=== PATIENT | female | born 1975 ===

== ENCOUNTER 2018-10-20 05:14 | Inpatient (IN) | payer OTHER ==
[2018-10-20] VITALS (14 sets, daily range): BP systolic 88–110; BP diastolic 44–95
[~2018-10-20] VITALS: Ht 162.6 cm; Wt 56.7 kg
[~2018-10-20 05:14] MED LIST: CYCLOBENZAPRINE10 MG ORAL; LEXAPRO20 MG ORAL; LORAZEPAM0.5 MG ORAL; MELOXICAM7.5 MG/5 M ORAL; SEROQUEL50 MG ORAL
[2018-10-20 05:53] LABS: APPEARANCE,URINE CLEAR; BILIRUBIN, URINE NEGATIVE (NEGATIVE); COLOR,URINE PALE YELLOW; GLUCOSE, URINE (UA) NEGATIVE (NEGATIVE); KETONES,URINE NEGATIVE (NEGATIVE); LEUKOCYTE ESTERASE ,URINE 1+ (NEGATIVE); NITRITE,URINE NEGATIVE (NEGATIVE); PH,URINE 5 (4.5-8.0); PROTEIN,URINE NEGATIVE (NEGATIVE); UROBILINOGEN,URINE NORMAL MG/DL (0.0-1.0)
[2018-10-20] MEDS ORDERED: Vancomycin 1gm/D5W 275ml IVPB ONE ×2 (06:00)
[2018-10-20] MEDS ORDERED: Pantoprazole Inj IVP ONE (06:00)
[2018-10-20] MEDS ORDERED: fentaNYL 100 mcg/2 mL IV ONE (06:58)
[2018-10-20] MEDS ORDERED: Midazolam 2mg/2ml Inj ONE (06:59)
[2018-10-20] MEDS ORDERED: Zemuron 50mg/5ml Inj IV ONE (07:04)
[2018-10-20] MEDS ORDERED: Succinylcholine 20mg/ml 10ml vial ONE (07:04)
[2018-10-20] MEDS ORDERED: Pantoprazole Inj ONE (07:04)
[2018-10-20] MEDS ORDERED: TransDerm Scop 1mg/72HR Patch TDERMAL ONE (07:04)
[2018-10-20] MEDS ORDERED: Lidocaine 1% MPF 10mg/ml 5ml ONE (07:10)
[2018-10-20] MEDS ORDERED: Bacitracin Oint 15gm Tube TOPIC ONE (07:24)
[2018-10-20] MEDS ORDERED: Thrombin 5000 units TOPIC ONE (07:25)
[2018-10-20] MEDS ORDERED: Heparin 1000 units/ml 1ml Vial ONE (07:25)
[2018-10-20] MEDS ORDERED: Thrombin 5000 units spray kit TOPIC ONE (07:25)
[2018-10-20] MEDS ORDERED: Gelfoam Size TOPIC ONE (07:25)
[2018-10-20] MEDS ORDERED: Bupivacaine w/Epi 0.5% 30ml Vial INJ ONE (07:25)
[2018-10-20] MEDS ORDERED: Bacitracin 50000 Units Vial ONE (07:26)
[2018-10-20] MEDS ORDERED: Gelfoam Absorbable 1gm powder pkt TOPIC ONE (07:26)
--- NOTE | 2018-10-20 07:28 | Pre-Procedure Note/Attestation ---
Pre-Procedure Note/Attestation Complete Prior to Procedure Planned Procedure: bilateral Procedure Narrative: Posterior lumbar decompression, interbody fusion, posterolateral arthrodesis and pedicle screw fixation at the L5-S1, use of allograft, autograft and iliac crest bone marrow aspirate. Attestation I attest that I discussed the nature of the procedure; its benefits; risks and complications; and alternatives (and the risks and benefits of such alternatives ), prior to the procedure, with the patient (or the patient's legal loan servicing representative). I attest that, if there was a reasonable possibility of needing a blood transfusion, the patient (or the patient's legal loan servicing representative) was given the [place] Department of Health Services standardized written summary, pursuant to the Hai Abernathy Blood Safety Act ([place] Health and Safety Code # 1645, as amended). I attest that I re-evaluated the patient just prior to the surgery and that there has been no change in the patient's H&P, except as documented below: Misty Krishnamurthy MD Oct 20, 2018 07:28
[2018-10-20] MEDS ORDERED: Dexamethasone 4mg/ml vial ONE (08:18)
[2018-10-20] MEDS ORDERED: Phenylephrine 10mg/ml Vial ONE (08:26)
[2018-10-20] MEDS ORDERED: Morphine Sulfate 10mg/ml Inj ONE (08:45)
[2018-10-20] MEDS ORDERED: Sodium Chloride 10ml vial INJ ONE (08:46)
--- NOTE | 2018-10-20 09:04 | Anethesia Preoperative Eval ---
Anesthesia Pre-op PMH/ROS General Date of Evaluation: Oct 20, 2018 Time of Evaluation: 07:15 Anesthesiologist: Flash ASA Score: ASA 2 Mallampati Score Class I : Soft palate, uvula, fauces, pillars visible Class II: Soft palate, uvula, fauces visible Class III: Soft palate, base of uvula visible Class IV: Only hard plate visible Mallampati Classification: Class II Surgeon: Yessy Diagnosis: Lumbar radiculopathy Surgical Procedure: L5-S1 laminotomy with decompression and interbody fusion Anesthesia History: none Family History: no anesthesia problems Allergies: Coded Allergies: No Known Allergies (Unverified , 10/18/18) Patient NPO?: Yes NPO Date: Oct 19, 2018 NPO Time: 2344 Past Medical History Cardiovascular: Denies: HTN, CAD, PA, valve dz, arrhythmia, other Pulmonary: Denies: asthma, COPD, KEN, other Gastrointestinal/Genitourinary: Reports: GERD; Denies: CRI, ESRD, other Neurologic/Psychiatric: Reports: depression/anxiety, other - chronic pain; Denies: dementia, CVA, TIA Endocrine: Reports: DM - Elevated BS on preop labwork; Denies: hypothyroidism, steroids, other HEENT: Denies: cataract (L), cataract (R), glaucoma, COMANCHE (L), COMANCHE (R), other Hematology/Immune: Reports: anemia - mild, other - Thrombocitopenia; Denies: DVT, bleeding disorder Musculoskeletal/Integumentary: Denies: OA, RA, DJD, DDD, edema, other PMH Narrative: as above PSxH Narrative: Anesthesia Pre-op Phys. Exam Physician Exam Last Vital Signs Date Time Temp Pulse Resp B/P (MAP) Pulse Ox O2 Delivery O2 Flow Rate FiO2 10/20/18 06:03 Room Air 10/20/18 05:51 97.0 66 18 110/73 (85) 99 Constitutional: NAD Neurologic: CN 2-12 intact Cardiovascular: RRR, no M/R/G Respiratory: CTA Gastrointestinal: S/NT/ND Airway Exam Mallampati Score: Class II MO: full Neck: flexible ROM: full Teeth: intact Dentures: no upper, no lower Anesthesia Pre-op A/P Labs see chart Urine Test Test 10/20/18 05:30 Urine HCG, Qualitative Negative (NEGATIVE) Studies Pre-op Studies: EKG - NSR Risk Assessment & Plan Assessment: ASA 2 Plan: GA with ETT prone position neuromonitoring, PONV prevention Status Change Before Surgery: No Pre-Antibiotics Drug: Vancomycin 1gr. Given Within 1 Hr of Incision: Yes Time Given: 08:15 Antoine Vidales MD Oct 20, 2018 09:04
[2018-10-20] MEDS ORDERED: LR 1000ml 1,000 ML IVLG SCH (09:06)
[2018-10-20] MEDS ORDERED: Midazolam 2mg/2ml Inj IVP PRN (09:15)
[2018-10-20] MEDS ORDERED: Meperidine 50mg/ml Inj(FOR RIGORS ONLY) IV PRN (09:15)
[2018-10-20] MEDS ORDERED: Metoclopramide 10mg/2ml Inj IVP PRN (09:15)
[2018-10-20] MEDS ORDERED: Hydromorphone 0.5mg/0.5ml inj IVP PRN (09:15)
[2018-10-20] MEDS ORDERED: Ketorolac 30mg Inj IV PRN (09:15)
[2018-10-20] MEDS ORDERED: TransDerm Scop 1mg/72HR Patch TDERMAL SCH (09:15)
[2018-10-20] MEDS ORDERED: DiphenhydrAMINE 50mg/ml Inj IVP PRN (09:15)
[2018-10-20] MEDS ORDERED: Acetaminophen (Non formulary) 100 ML IV ONE ×2 (09:15→12:45)
[2018-10-20] MEDS ORDERED: Ketorolac 30mg Inj ONE (09:26)
[2018-10-20] MEDS ORDERED: Glycopyrrolate 0.2mg/ml 1ml Vial ONE (09:26)
--- NOTE | 2018-10-20 12:26 | Immediate Post-Op Evaluation ---
Immediate Post-Op Evalulation Immediate Post-Op Evalulation Procedure: L5-S1 laminotomy with decompression and interbody fusion Date of Evaluation: Oct 20, 2018 Time of Evaluation: 12:25 IV Fluids: 1000 Blood Products: none Estimated Blood Loss: 50 Urinary Output: 700 Blood Pressure Systolic: 104 Blood Pressure Diastolic: 56 Pulse Rate: 98 Respiratory Rate: 22 O2 Sat by Pulse Oximetry: 99 Temperature (Fahrenheit): 97.6 Pain Score (1-10): 1 Nausea: No Vomiting: No Complications none Patient Status: reacts, patent, extubated, none Hydration Status: adequate Antoine Vidales MD Oct 20, 2018 12:26
--- NOTE | 2018-10-20 12:26 | Brief Operative Note ---
Immediate Post Operative Note Operative Note Chief Complaint: Severe lower back pain and radiculopathy Pre-op Diagnosis: 1. s/p fall with cervical and lumbar spine trauma. 2. Intractable low back pain disc collapse at L5-S1 level 3. Lack of improvement from conservative care and interventional pain injections Procedure: 1. posterior lumbar decompression, bilateral L5 hemilaminotomies 2. transforaminal approach with radical discectomy at L5-S1 3. Transpedicular bilateral pedicle screw fixationL5 and S1 6.0 x 40 and 45 mm 4. Posterolateral arthrodesis bilateral L5-S1, with autograft, allograft and iliac crest bone aspirate concentrate 5. Aspiration of right iliac crest bone marrow aspiration 6. [place] of local bone for fusion. 7. Intra-op use and supervision and interpretation of fluoroscopy 8. Intra-op microdissection with microscope 9. Application of epidural fat graft L5-S1 bilateral 10. Neurolusis of left S1 root. 11. Insertion of 10 mm PEEK RTI cage at L5-S1 Post-op Diagnosis: same as pre-op Findings: consistent w/pre-op dx studies Surgeon: MISTY KRISHNAMURTHY MD Trimmer Helper: JESÚS GOODSON MD Anesthesiologist: ARIS Anesthesia: general Specimen: yes - DISC Complications: none Condition: stable Fluids: 1.0 Crystalloids Estimated Blood Loss: volume Drains: hemovac Implant(s) used?: Yes - U & I pedicle screws RTI PEEK cage Misty Krishnamurthy MD Oct 20, 2018 12:26
[2018-10-20] MEDS ORDERED: traMADol 50mg tab ORAL PRN (12:30)
[2018-10-20] MEDS ORDERED: Cyclobenzaprine 10mg Tab ORAL PRN (12:30)
[2018-10-20] MEDS ORDERED: HYDROcodone/Acetamin 7.5/325 tab ORAL PRN (12:30)
[2018-10-20] MEDS ORDERED: Milk of Magnesia 30ml Ud ORAL PRN (12:30)
--- NOTE | 2018-10-20 12:55 | Diagnostic Imaging Report ---
INDICATION: Pain, intraoperative TECHNIQUE: Intraoperative imaging Fluoroscopy time: 42.6 seconds Total dose: 0.03296 mGym2 Total number of images: 6 COMPARISON: None FINDINGS: Initial images demonstrate apical clips projected posterior to what are presumably L4 and L5 vertebral bodies. Subsequent images demonstrate surgical tool's projected over L5 and S1. Subsequent images document posterior fusion hardware at L5-S1, with a disc spacer. IMPRESSION: Intraoperative imaging, as described
--- NOTE | 2018-10-20 13:42 | NUR ---
CASE MANAGEMENT:REVIEW 43 YR OLD FEMALE HERE FOR ELECTIVE SURGERY RIVERA: LUMBAR RADICULOPATHY 97.0 66 18 110/73 99% ON RA IS: TO SURGERY: LUMBAR DECOMPRESSION,BILATERAL HEMILAMINOTOMIES IV VANCOMYCIN Q12 IV ACETAMINOPHEN X1 IVF@100/HR : MED/SURG [facility]
--- NOTE | 2018-10-20 14:00 | NUR ---
DR HURST NOTIFIED OF PATIENTS BP 88/46 . PATIENT AWAKE , ALERT , SKIN WARM AND DRY TO TOUCH PAIN LEVEL AT 4 DRESSING DRY AND INTACT . OK TO TRANSFER TO FLOOR BY ANESTHESIA . 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
--- NOTE | 2018-10-20 14:40 | NUR ---
NURSE NOTES: Received patient awake, alert and oriented from PACU. Family at bedside. IV site at left antecubital, infusing LR. Oriented patient to room. Belongings accounted for. Bed at lowest level with 3 side rails up. Call light within reach. In no apparent distress at this time. Will continue to monitor.
[2018-10-20] MEDS: Hydromorphone 0.5mg/0.5ml inj SUBQ PRN ×2 (15:24→20:03)
--- NOTE | 2018-10-20 16:27 | 48 Hour Post Anesthesia Eval ---
Post Anesthesia Evaluation Procedure: L5-S1 laminotomy with decompression and interbody fusion Date of Evaluation: Oct 20, 2018 Time of Evaluation: 14:01 Blood Pressure Systolic: 94 0: 50 Pulse Rate: 80 Respiratory Rate: 18 Temperature (Fahrenheit): 98 O2 Sat by Pulse Oximetry: 99 Airway: patent Nausea: No Vomiting: No Pain Intensity: 3 Hydration Status: adequate Cardiopulmonary Status: Stable Mental Status/LOC: patient returned to baseline Follow-up Care/Observations: 0 Post-Anesthesia Complications: 0 Follow-up care needed: N/A Rosendo Richards MD Oct 20, 2018 16:27
--- NOTE | 2018-10-20 16:55 | General Progress Note ---
Progress Note Progress Note Neurosurgery post op S/ Comfortable . No leg pain O/ VS Last 24 Hour Vital Signs Date Time Temp Pulse Resp B/P (MAP) Pulse Ox O2 Delivery O2 Flow Rate FiO2 10/20/18 16:27 80 18 99 10/20/18 14:45 98.0 18 94/50 (65) 99 10/20/18 14:30 80 19 91/49 99 Nasal Cannula 3 10/20/18 13:59 97.4 78 17 88/46 100 Nasal Cannula 3 10/20/18 13:55 84 18 88/45 100 Nasal Cannula 3 10/20/18 13:45 85 16 91/47 100 Nasal Cannula 3 10/20/18 13:30 85 15 89/45 100 Nasal Cannula 3 10/20/18 13:15 79 14 95/44 100 Nasal Cannula 3 10/20/18 13:00 90 18 110/95 100 Nasal Cannula 3 10/20/18 12:40 87 16 97/57 100 Simple Mask 6 10/20/18 12:30 110 23 93/56 100 Simple Mask 6 10/20/18 12:26 98 22 99 10/20/18 12:25 111 21 95/49 100 Simple Mask 6 10/20/18 12:19 97.0 102 22 100/56 100 Simple Mask 6 10/20/18 06:03 Room Air 10/20/18 05:51 97.0 66 18 110/73 (85) 99 Alert and and oriented x 3 Moves all extremities well dressing dry HV minimal output doing well lumbar brace ambulate in am Misty Krishnamurthy MD Oct 20, 2018 16:55
[2018-10-20] MEDS: Docusate Sod/Senna tab ORAL SCH (17:06)
[2018-10-20] MEDS: NS w/KCl 20mEq 1,000 ML IV SCH (17:06)
[2018-10-20] MEDS ORDERED: Docusate 100mg cap ORAL SCH (18:00)
--- NOTE | 2018-10-20 19:30 | NUR ---
Report received from AHYDEE Joy. Patient alert, oriented. Bed in low position, locked, side rails up x2. Call light within reach, pain 04/24. See eMAR for pain meds given. IV intact, patent on LH. Will continue to monitor.
--- NOTE | 2018-10-20 19:46 | Operative Note - Dictated ---
DATE OF OPERATION: 10/20/2018 PREOPERATIVE DIAGNOSES: 1. Status post fall with cervical and lumbar spine trauma. 2. 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 3. Lack of improvement from multimodality intervention including interventional pain injections. POSTOPERATIVE DIAGNOSES: 1. Status post fall with cervical and lumbar spine trauma. 2. 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 3. Lack of improvement from multimodality intervention including interventional pain injections. PROCEDURE: 1. Posterior lumbar decompressive surgery, bilateral L5 hemilaminotomy, medial facetectomy, and foraminotomies. 2. Left L5-S1 transforaminal approach with wide inferior L5 partial facetectomy. 3. Complete and total diskectomy at L5-S1 level through the transforaminal approach. 4. Preparation of disk space and insertion of biomechanical device PEEK cage, 26 mm x 10 mm, filled with autologous bone graft, allograft, autograft, and iliac crest bone marrow aspirate at the L5-S1 level under fluoroscopic guidance. 5. Application of epidural fat graft to laminotomy defects at L5-S1 level bilaterally. 6. Transpedicular fixation at the L5 and S1 level using 6 mm x 40 and 6 mm x 45 mm screws at L5 and S1 levels. 7. Posterolateral arthrodesis with autologous bone graft, allograft, and autograft at L5-S1 bilaterally. 8. Arthrodesis with 40 mm and 35 mm rods at L5-S1 level. 9. Intraoperative use, interpretation, and supervision of fluoroscopy for localization of spine. 10. Neurolysis of the left S1 nerve root with microdissection and microsurgical technique. 11. [place] of local bone from laminectomy for fusion. 12. Aspiration of right iliac crest bone marrow for fusion and processing with concentrating centrifuge. 13. Placement of the Hemovac drain. SURGEON: Misty Krishnamurthy MD. VETERINARY MEAT INSPECTOR SURGEON: Ronald Alarcon MD. ANESTHESIOLOGIST: Dr. Vidales. ANESTHESIA TYPE: General endotracheal anesthesia. ESTIMATED BLOOD LOSS: 50 mL. IV FLUIDS: 1 liter. URINE OUTPUT: 600 mL. INDICATION: The patient is a pleasant woman status post fall in November 2015, with subsequent intractable neck and lower back pain. She has undergone a number of conservative measures, medical therapy, and interventional pain injections without improvement. Imaging studies of the lumbar spine including a CT scan of the lumbar spine were obtained. The CT scan of September 06, 2018, showed collapse of the L5-S1 disk space. The study was used for surgical planning. The risks of the operation include but not limited to the risk of infection, bleeding, nerve damage, paralysis, spinal fluid leakage requiring revision surgery, mishaps with anesthesia including coma and , adjacent segment disease requiring additional treatment after surgery including physical therapy, medical therapy, and injections and ultimately adjacent segment fusion were all discussed with the patient and her in detail. She voiced understanding and signed the consent to proceed. DETAILS OF PROCEDURE: The patient was greeted and evaluated in the preoperative area. The procedure was explained to the patient again and with its risks and benefits. The patient signed a consent to proceed. The patient was then accompanied to the operating room on a gurney. The patient underwent uneventful endotracheal intubation. She received preincisional IV antibiotics, Decadron and magnesium sulfate. Neuro monitoring leads were attached. Velásquez catheter was inserted. The patient was then placed prone on a Ag table. Care was taken to pad all pressure points from the top of the head to the tip of the toes. Lumbar lordosis was maintained on the Ag table. Fluoroscopic images were obtained in the AP and lateral views after placement of radiopaque markers to localize the lumbar region. The back was then prepped and draped in sterile fashion. Time-out was observed and the circulating nurse called the time-out. The incision was infiltrated with Marcaine and epinephrine. Microscope was brought to the field. The entire case was done under microscopic magnification. Incision was made in the midline using a #10 blade. Dissection was carried to the level of the deep fascia and the deep layer of subcutaneous fascia was opened. The deep subcutaneous fat was then harvested for local grafting through a separate fascial incision. Two paramedian fascial incisions were then made approximately 2 cm from the midline. A plane was then developed along the multifidus and longissimus plane down to the L5-S1 facet complex bilaterally. The L5 laminae were identified bilaterally. Intraoperative fluoroscopic images were obtained to verify the correct level. Using high-speed drill, bilateral hemilaminotomy, medial facetectomy, and foraminotomy was performed. There was severe compression of the exiting L5 roots due to foraminal collapse bilaterally. After drilling the superior facet of S1 and complete medial facetectomy, the foramina were open and a [place] elevator was easily passable through the foramen. A wide foraminotomy for the S1 nerve root was performed bilaterally. On the left side, a transforaminal approach was created by extending the facetectomy medially and removing the superficial ligament. Using bipolar cautery, epidural adhesions and epidural veins were coagulated and incised using a micro scissors. This maneuver was necessary to mobilize the thecal sac and the S1 root away from the disk space for safe deployment of the interspace graft. The L5-S1 disk space was collapsed. Using sequential sizers, the disk space was elevated. Prior to insertion of the graft, pedicle screws were inserted on the right side and a temporary ginny and set screw fixation was performed. Using sequential sizers, a 10 mm graft was then filled with autologous bone graft, iliac crest bone marrow aspirate, and InterGro DBM and inserted into the L5-S1 interspace through the transforaminal approach. There was height reconstruction and the graft was in excellent position on AP and lateral views. Using a Jamshidi needle, 30 mL of bone marrow was removed from the right iliac crest and processed with a centrifuge device. The senior engineering technician then returned approximately 4 mL of highly concentrated bone marrow to the field, which was mixed with autologous bone graft harvested from the laminectomy, DBM, and cancellous bone chips. Posterolateral arthrodesis was then performed after decorticating the lateral aspects of the facet and the transverse processes and placement of the bone in the lateral gutter. The 35 and 40 mm rods were then inserted and appropriate torque was applied to fixate the screw heads. AP and lateral x-rays of the final construct were performed which showed excellent position of the screws and rods. Prior to the insertion of the screws, neural monitoring was performed with pedicle-screw stimulation which showed no evidence of electrical breach. The wound was irrigated with copious amounts of antibiotic irrigation. A Hemovac drain was placed on the right side and brought out through a separate stab incision. Plastic surgical closure was performed in multiple layers for the lumbar incision. The incision was dressed with Dermabond and Steri-Strips and sterile dressings were applied to the exit of the drain and also the midline incision. The patient tolerated this procedure well. She was extubated at the end of the case, moving all extremities. COMPLICATIONS: None. Misty Krishnamurthy M.D. DR: Galdino JOB#: [id number] CC: BEATRICE
[2018-10-20] MEDS: Acetaminophen (Non formulary) 100 ML IV SCH (20:07)
[2018-10-20] MEDS: Vancomycin 1 GM in D5W 275 ML IVPB SCH (21:18)
--- NOTE | 2018-10-20 23:01 | Consultation ---
History of Present Illness General Date patient seen: Oct 20, 2018 Time patient seen: 22:58 Present Illness Allergies: Coded Allergies: No Known Allergies (Unverified , 10/18/18) Medication History Scheduled Cyclobenzaprine Hcl* (Flexeril*), 10 MG ORAL DA, (Reported) Escitalopram Oxalate* (Lexapro*), 20 MG ORAL DAILY, (Reported) Lorazepam* (Lorazepam*), 0.5 MG ORAL , (Reported) Quetiapine Fumarate (Seroquel), 50 MG ORAL DAILY, (Reported) Discontinued Medications Meloxicam (Meloxicam), 15 MG ORAL , (Reported) Discontinued Reason: Pt had allergic rxn Patient History Healthcare decision maker dottie) Resuscitation status Full Code Advanced Directive on File No Review of Systems Constitutional: Reports: no symptoms Eye: Reports: no symptoms ENT: Reports: no symptoms Respiratory: Reports: no symptoms ROS Narrative has pain and wathcing tv Physical Exam General Appearance: WD/WN, other - thin built HEENT: normocephalic Neck: other - no jvd Respiratory/Chest: lungs clear Cardiovascular/Chest: normal rate, regular rhythm Abdomen: non tender, soft Extremities: other - no clubbing Last 24 Hour Vital Signs Date Time Temp Pulse Resp B/P (MAP) Pulse Ox O2 Delivery O2 Flow Rate FiO2 10/20/18 16:27 80 18 99 10/20/18 15:54 98.0 10/20/18 14:45 98.0 18 94/50 (65) 99 10/20/18 14:30 80 19 91/49 99 Nasal Cannula 3 10/20/18 13:59 97.4 78 17 88/46 100 Nasal Cannula 3 10/20/18 13:55 84 18 88/45 100 Nasal Cannula 3 10/20/18 13:45 85 16 91/47 100 Nasal Cannula 3 10/20/18 13:30 85 15 89/45 100 Nasal Cannula 3 10/20/18 13:15 79 14 95/44 100 Nasal Cannula 3 10/20/18 13:00 90 18 110/95 100 Nasal Cannula 3 10/20/18 12:40 87 16 97/57 100 Simple Mask 6 10/20/18 12:30 110 23 93/56 100 Simple Mask 6 10/20/18 12:26 98 22 99 10/20/18 12:25 111 21 95/49 100 Simple Mask 6 10/20/18 12:19 97.0 102 22 100/56 100 Simple Mask 6 10/20/18 06:03 Room Air 10/20/18 05:51 97.0 66 18 110/73 (85) 99 Intake and Output 10/19/18 10/20/18 18:59 06:59 # Voids 1 Laboratory Tests Test 10/20/18 05:30 Urine Color Pale yellow Urine Appearance Clear Urine pH 5 (4.5-8.0) Urine Specific [place] 1.015 (1.005-1.035) Urine Protein Negative (NEGATIVE) Urine Glucose (UA) Negative (NEGATIVE) Urine Ketones Negative (NEGATIVE) Urine Blood Negative (NEGATIVE) Urine Nitrite Negative (NEGATIVE) Urine Bilirubin Negative (NEGATIVE) Urine Urobilinogen Normal MG/DL (0.0-1.0) Urine Leukocyte Esterase 1+ (NEGATIVE) H Urine RBC 0-2 /HPF (0 - 2) Urine WBC 2-4 /HPF (0 - 2) Urine Squamous Epithelial Cells Moderate /LPF (NONE/OCC) H Urine Bacteria Few /HPF (NONE) Urine HCG, Qualitative Negative (NEGATIVE) Height (Feet): 5 Height (Inches): 4.00 Weight (Pounds): 125 Medications Current Medications Medications (Trade) Dose Ordered Sig/Tawnya Route PRN Reason Start Time Stop Time Status Last Admin Dose Admin Acetaminophen 100 ml @ 400 mls/hr Q8H IV 10/20/18 20:00 11/19/18 19:59 10/20/18 20:07 Acetaminophen (Tylenol) 650 mg Q6H PRN ORAL Mild Pain (Pain Scale 1-3) 10/20/18 12:30 11/19/18 12:29 Acetaminophen/ Hydrocodone Bitart ([place] 7.5/325) 1 tab Q3H PRN ORAL pain score 4-6 10/20/18 12:30 10/27/18 12:29 Acetaminophen/ Hydrocodone Bitart ([place] 7.5/325) 2 tab Q3H PRN ORAL pain scale 7-10 10/20/18 12:30 10/27/18 12:29 Cyclobenzaprine HCl (Flexeril) 10 mg TIDPRN PRN ORAL Muscle Spasm 10/20/18 12:30 11/19/18 12:29 Escitalopram Oxalate (Lexapro) 20 mg DAILY ORAL 10/21/18 09:00 11/20/18 08:59 Hydromorphone HCl (Dilaudid) 0.5 mg Q3H PRN SUBQ Severe Pain (Pain Scale 7-10) 10/20/18 12:30 10/27/18 12:29 10/20/18 20:03 Magnesium Hydroxide (Mom) 30 ml QIDPRN PRN ORAL Constipation 10/20/18 12:30 11/19/18 12:29 Ondansetron HCl (Zofran) 4 mg Q6H PRN IVP Nausea & Vomiting 10/20/18 12:30 11/19/18 12:29 Quetiapine Fumarate (SEROquel) 50 mg Q12HR ORAL 10/20/18 21:00 11/19/18 20:59 10/20/18 21:18 Senna/Docusate Sodium (Gayatri-Colace) 1 tab TWICE A DAY ORAL 10/20/18 18:00 11/19/18 17:59 10/20/18 17:06 Sodium Chloride 1,000 ml @ 100 mls/hr Q10H IV 10/20/18 15:00 11/19/18 14:59 10/20/18 17:06 Tramadol HCl (Ultram) 50 mg Q6H PRN ORAL For Pain 10/20/18 12:30 10/27/18 12:29 Vancomycin HCl 1 gm/Dextrose 275 ml @ 183.3 mls/ hr EVERY 12 HOURS IVPB 10/20/18 21:00 10/21/18 10:31 10/20/18 21:18 Assessment/Plan Status Narrative 43 yea rold female s/p complex spine surgery historyof anxiety historyof depressino Assessment/Plan pain control DVT prophyalxis PT OT resume medication preop. kalli calle scd. Dino Glez MD Oct 20, 2018 23:01
[2018-10-21] VITALS: BP 95/48
[2018-10-21] MEDS: NS w/KCl 20mEq 1,000 ML IV SCH ×2 (01:00→05:06)
[2018-10-21] MEDS: Acetaminophen (Non formulary) 100 ML IV SCH ×2 (03:58→12:07)
[2018-10-21 04:00] VITALS: BP 98/52
[2018-10-21] MEDS: HYDROcodone/Acetamin 7.5/325 tab ORAL PRN ×2 (05:05→12:04)
[2018-10-21 06:35] LABS: BASOPHILS % (AUTO) 1.2 % (0.0-2.0); EOSINOPHILS % (AUTO) 0.4 % (0.0-3.0); HEMATOCRIT 27.4 % (37.0-47.0); HEMOGLOBIN 8.7 G/DL (12.0-16.0); LYMPHOCYTES % (AUTO) 11.2 % (20.0-45.0); MEAN CORPUSCULAR VOLUME 99 FL (80-99); NEUTROPHILS % (AUTO) 77.2 % (45.0-75.0); PLATELET COUNT 208 K/UL (150-450); RED BLOOD COUNT 2.77 M/UL (4.20-5.40); RED CELL DISTRIBUTION WIDTH 14.5 % (11.6-14.8); WHITE BLOOD COUNT 6.2 K/UL (4.8-10.8)
[2018-10-21 06:44] LABS: ANION GAP 5 mmol/L (5-15); BLOOD UREA NITROGEN 9 mg/dL (7-18); CALCIUM 8.9 MG/DL (8.5-10.1); CARBON DIOXIDE 30 MMOL/L (21-32); CHLORIDE 104 MMOL/L (98-107); CREATININE 0.8 MG/DL (0.55-1.30); POTASSIUM 3.5 MMOL/L (3.5-5.1); SODIUM 139 MMOL/L (136-145)
--- NOTE | 2018-10-21 07:21 | NUR ---
HAND-OFF: Report given to HAYDEE Carrillo. Pt in stable condition.
[2018-10-21] MEDS ORDERED: Neostigmine 1mg/ml 10ml Inj ONE (08:00)
[2018-10-21] MEDS ORDERED: Sterile Water Irrig 1000ml IRRIG ONE (08:00)
[2018-10-21] MEDS ORDERED: NS Irrig 1000ml ONE (08:00)
[2018-10-21] MEDS ORDERED: LR 1000ml ONE (08:00)
--- NOTE | 2018-10-21 08:00 | NUR ---
Patient is alert and oriented,dressing to back clean and intact,hemovac intact and compressed,small amount of drainage noted.patient able to move legs and wiggle toes,pedal pulses strong bilateral feet, are warm to touch,no complaint of numbness.IV fluids infusing as ordered.patient sitting up in bed and eating breakfast,call light within reach.
[2018-10-21 08:50] VITALS: BP 87/46
[2018-10-21] MEDS: Vancomycin 1 GM in D5W 275 ML IVPB SCH (09:06)
[2018-10-21] MEDS: Docusate Sod/Senna tab ORAL SCH (09:07)
[2018-10-21 09:23] VITALS: BP 99/47
[2018-10-21 11:58] VITALS: BP 101/57
--- NOTE | 2018-10-21 14:15 | General Progress Note ---
Progress Note Progress Note Neurosurgery POD #1 HV 100 cc S/ doing very well. back pain much better compared to preop. ambulated voided O./ vs: Last 24 Hour Vital Signs Date Time Temp Pulse Resp B/P (MAP) Pulse Ox O2 Delivery O2 Flow Rate FiO2 10/21/18 11:58 98.8 72 18 101/57 (72) 98 10/21/18 09:23 71 99/47 (64) 10/21/18 09:00 Room Air 10/21/18 08:50 98.4 72 18 87/46 (60) 98 10/21/18 04:00 98.2 68 18 98/52 (67) 10/21/18 00:00 98.5 66 17 95/48 (64) 96 10/20/18 21:00 Room Air 10/20/18 20:00 97.7 62 16 104/63 (77) 94 10/20/18 16:27 80 18 99 10/20/18 15:54 98.0 10/20/18 14:45 98.0 18 94/50 (65) 99 10/20/18 14:30 80 19 91/49 99 Nasal Cannula 3 On exam: Incison C/D/I HV removed at bedside. serosang Motor / Labs: Laboratory Tests Test 10/21/18 05:55 White Blood Count 6.2 K/UL (4.8-10.8) Red Blood Count 2.77 M/UL (4.20-5.40) L Hemoglobin 8.7 G/DL (12.0-16.0) L Hematocrit 27.4 % (37.0-47.0) L Mean Corpuscular Volume 99 FL (80-99) Mean Corpuscular Hemoglobin 31.2 PG (27.0-31.0) H Mean Corpuscular Hemoglobin Concent 31.6 G/DL (32.0-36.0) L Red Cell Distribution Width 14.5 % (11.6-14.8) Platelet Count 208 K/UL (150-450) Mean Platelet Volume 8.2 FL (6.5-10.1) Neutrophils (%) (Auto) 77.2 % (45.0-75.0) H Lymphocytes (%) (Auto) 11.2 % (20.0-45.0) L Monocytes (%) (Auto) 10.0 % (1.0-10.0) Eosinophils (%) (Auto) 0.4 % (0.0-3.0) Basophils (%) (Auto) 1.2 % (0.0-2.0) Sodium Level 139 MMOL/L (136-145) Potassium Level 3.5 MMOL/L (3.5-5.1) Chloride Level 104 MMOL/L (98-107) Carbon Dioxide Level 30 MMOL/L (21-32) Anion Gap 5 mmol/L (5-15) Blood Urea Nitrogen 9 mg/dL (7-18) Creatinine 0.8 MG/DL (0.55-1.30) Estimat Glomerular Filtration Rate > 60 mL/min (>60) Glucose Level 81 MG/DL (74-106) Calcium Level 8.9 MG/DL (8.5-10.1) doing well d/c instructions d/w nursing and pt's family Misty Krishnamurthy MD Oct 21, 2018 14:15
--- NOTE | 2018-10-21 15:20 | NUR ---
PT Note PT dre completed, treatment initiated. Patient was able to ambulate with a FWW, then without any AD. Patient needs PT to instruct on proper body mechanics and proper log rolling techniques to improve safety in mobility and gait. Addendum: 10/21/18 at 1521 by DEANGELO MISTRY PT Amended: Links added.
--- NOTE | 2018-10-21 17:15 | NUR ---
NURSE NOTES Discharge at this time with discharge instructions given,patient has discharge prescription,patient has belongings and has back brace on.IV removed and ID hospital band removed.DR Krishnamurthy aware of patient blood pressure of 84/49 and heart rate of 72 sitting,patient blood pressure standing is 92/56 and heart rate of 83,patient has no complaint of dizziness when standing DR Krishnamurthy state patient can be discharge as ordered patient to drink plenty of liquids and to take iron medication as ordered.patient can resume home medication,patient has home medication flexeril and aware if she takes flexeril she must space medication 2 ho apart before taking Hydrocodone.Patient back dressing is clean and intact.Patient accompany down to private vehicle,patient family is here.
[2018-10-21 17:36] VITALS: BP 92/56
[2018-10-21] MEDS ORDERED: Tubing IV Secondary IV ONE (18:16)
--- NOTE | 2018-10-24 14:25 | Discharge Summary ---
Discharge Summary Hospital Course Date of Admission Oct 20, 2018 at 05:14 Date of Discharge Oct 21, 2018 at 18:17 Admitting Diagnosis Lumbar radiculopathy Reason for Hospitalization: Elective surgery HPI Corry Garnica is a 43 year old female who was admitted on Oct 20, 2018 at 05: 14 for Lumbar Radiculopathy Patient was admitted for elective surgery. Consultations Dr Glez /IM Procedures s/p 10/20/[address] Krishnamurthy 1. Posterior lumbar decompressive surgery, bilateral L5 hemilaminotomy, medial facetectomy, and foraminotomies. 2. Left L5-S1 transforaminal approach with wide inferior L5 partial facetectomy. 3. Complete and total diskectomy at L5-S1 level through the transforaminal approach. 4. Preparation of disk space and insertion of biomechanical device PEEK cage, 26 mm x 10 mm, filled with autologous bone graft, allograft, autograft, and iliac crest bone marrow aspirate at the L5-S1 level under fluoroscopic guidance. 5. Application of epidural fat graft to laminotomy defects at L5-S1 level bilaterally. 6. Transpedicular fixation at the L5 and S1 level using 6 mm x 40 and 6 mm x 45 mm screws at L5 and S1 levels. 7. Posterolateral arthrodesis with autologous bone graft, allograft, and autograft at L5-S1 bilaterally. 8. Arthrodesis with 40 mm and 35 mm rods at L5-S1 level. 9. Intraoperative use, interpretation, and supervision of fluoroscopy for localization of spine. 10. Neurolysis of the left S1 nerve root with microdissection and microsurgical technique. 11. [place] of local bone from laminectomy for fusion. 12. Aspiration of right iliac crest bone marrow for fusion and processing with concentrating centrifuge. 13. Placement of the Hemovac drain. Hospital Course Status post surgery course of recovery uneventful initially IV fluids s/p perioperative antibiotics neurovascular status closely monitored, stable incision clean ,dry, and intact Initially with a Hemovac, output serosanguineous, was closely monitored Hemovac was discontinued prior to discharge by surgeon pain management addressed ; pain controlled hemodynamically stable , motor strength 5 out of 5 ambulated with PT DVT prophylaxis provided /SCD , Rene hose use of incentive spirometry was encouraged while in the bed fall precautions maintained; safe for ambulation tolerated diet , IV fluids discontinued GI prophylaxis provided antiemetics were on board as needed voided freely bowel regimen instituted home medication for depression and anxiety continued patient was stable for discharge discharge instructions provided follow up with surgeon as outpatient as advised by surgeon FINAL DIAGNOSES 1. Status post fall with cervical and lumbar spine trauma. 2. 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 3. Lack of improvement from multimodality intervention including interventional pain injections. 4. s/p L5-S1 laminotomy with decompression and interbody fusion 5. History of depression 6. History of anxiety Discharge Medications Continued Medications: Cyclobenzaprine Hcl* (Flexeril*) 10 Mg Tablet 10 MG ORAL DA, TAB (This prescription has been renewed) Escitalopram Oxalate* (Lexapro*) 20 Mg Tablet 20 MG ORAL DAILY, TAB (This prescription has been renewed) Lorazepam* (Lorazepam*) 0.5 Mg Tablet 0.5 MG ORAL , TAB (This prescription has been renewed) Quetiapine Fumarate (Seroquel) 50 Mg Tablet 50 MG ORAL DAILY, #15 TAB 0 Refills (This prescription has been renewed) Discharge Condition Upon Discharge: stable Discharge Disposition Patient was discharged to Home (01) Discharge Instructions Discharge Instructions Special Instructions I have been assigned to complete a D/C Summary on this account. I was not involved in the patient management Fiordaliza Vail NP Oct 24, 2018 14:25
== END 2018-10-21 18:17 | disposition home or self-care (01) | DRG 460 ==
LOC: SDSOVERFLO 05:14 → 3E 14:35
DX: M51.17 Intervertebral disc disorders with radiculopathy, lumbosacral region (principal); F41.9 Anxiety disorder, unspecified; F32.9 Major depressive disorder, single episode, unspecified
CPT/HCPCS: 36415; 72020; 76000; 80048; 81003; 81025; 82962; 85025; 86850; 86900; 86901; 87081; 94003; 94150; C9399; J2250; J2370; J2405; J2710